=== PATIENT | female | born 1985 | race Caucasian/White ===

== ENCOUNTER 2024-06-28 17:34 | Emergency (ER) | payer OTHER, SELFPAY ==
[2024-06-28 17:48] VITALS: BP 118/68
[2024-06-28 18:33] LABS: COVID-19 Antigen Negative (Negative)
[2024-06-28 18:34] LABS: HCG, Serum Qualitative Screen Negative
[2024-06-28 18:37] LABS: ALT (SGPT) 33 U/L (0-35); AST (SGOT) 33 U/L (14-36); Alkaline Phosphatase 58 U/L (38-126); Blood Urea Nitrogen 14 mg/dl (7-17); Calcium 8.9 mg/dl (8.4-10.2); Carbon Dioxide 31 mmol/L (22-30); Chloride 99 mmol/L (98-107); Glucose 107 mg/dl (70-99); Sodium 138 mmol/L (135-145); Total Bilirubin 0.2 mg/dl (0.2-1.3); Total Protein 6.5 g/dl (6.3-8.2); eGFR > 60.00
[2024-06-28 18:41] LABS: % Basophils 0.5 % (0-2); % Eosinophils 1.3 % (0-6); % Immature Granulocytes 0.3 % (0-0.5); % Lymphocytes 52.4 % (20.5-51.1); % Monocytes 12.6 % (1.7-9.3); % Neutrophils 32.9 % (42.2-75.2); Absolute Eosinophils 0.1 10^3/uL (0-0.7); Absolute Monocytes 0.5 10^3/uL (0.1-0.6); Absolute Neutrophils 1.3 10^3/uL (1.4-6.5); Hematocrit 41.6 % (37.0-47.0); Hemoglobin 13.9 g/dL (12.0-16.0); Mean Corp Hgb Conc. 33.4 g/dL (33.0-37.0); Mean Corpuscular Hgb 30.3 pg (27.0-31.0); Mean Corpuscular Volume 90.6 fL (81.0-99.0); Mean Platelet Volume 10.1 fL (7.4-10.4); Nucleated Red Blood Cells % 0 %; Platelet Count 239 10^3/uL (130-400); Red Blood Cell Count 4.59 10^6/uL (4.20-5.40); Red Cell Dist. Width 12.4 % (11.5-14.5); White Blood Cell Count 3.8 10^3/uL (4.8-10.8)
[2024-06-28 18:42] LABS: Troponin I < 0.012 ng/ml
--- NOTE | 2024-06-28 20:12 | ED.GENMED ---
History of Present Illness
General
Chief Complaint: Cold/Flu/URI Symptoms
Time Seen by Provider: 06/28/24 20:12
History of Present Illness
History of Present Illness:
TIME OF INITIAL ENCOUNTER: 8:15 PM
HPI: Patient presents with URI symptoms over the last several days associated with shortness of breath.
EXAM:
NUMBER AND COMPLEXITY OF PROBLEMS ADDRESSED AT THE ENCOUNTER
� Chronic conditions affecting care: Bladder prolapse but otherwise no significant past medical history
� Acute Exacerbation and/or Progression of Chronic Illness:
� Differential Diagnosis includes:
AMOUNT AND/OR COMPLEXITY OF DATA TO BE REVIEWED AND ANALYZED
� I performed an independent evaluation of and my interpretation is:
EKG: Sinus 55, no acute ST abnormality, no old to compare
CT:
X-rays:
Laboratory Studies: White count 3.8, hemoglobin normal, troponin less than 0.012, hCG negative, COVID-negative, flu positive
Other:
� Review of other/old records:
� Clinical information was obtained by an independent historian:
� Prescriptions/Medications Considered but not given:
� Further testing considered but not performed:
RISK OF COMPLICATIONS AND/OR MORBIDITY OR MORTALITY OF PATIENT MANAGEMENT
� Social determinants of health affecting care:
� Discussion with other providers:
� Escalation of care including admission/observation vs risk of discharge considered:
ANY OTHER UPDATES:
Course
Orders/Labs/Results
Orders:
Orders
06/28/24 17:37
Electrocardiogram (*1) Urgent
Reason for Study: Vertigo / Dizzy
EKG- Treatment ONCE
06/28/24 17:51
Test Result ONCE
06/28/24 17:58
COVID-19 Antigen Urgent
Source: Nasal Swab
Complete Blood Count/With Diff Urgent
Comprehensive Metabolic Panel Urgent
HCG, Serum Qualitative Screen Urgent
Troponin I Urgent
Influenza A+B Rapid Molecular Urgent
LOGAN Source: Nasal Swab
Specimen Description:
06/28/24 17:59
CR Chest - 2 Views Urgent
Comment:
Reason For Exam: SOB
06/28/24 19:[address] [CT Head W/o Iv Contrast] Urgent
Comment:
Reason For Exam: head injury
Abnormal Lab Results
06/28/24
17:58
WBC 3.8 L 10^3/uL
(4.8-10.8)
Absolute Neuts (auto) 1.3 L 10^3/uL
(1.4-6.5)
Neutrophils % 32.9 L %
(42.2-75.2)
Lymphocytes % 52.4 H %
(20.5-51.1)
Monocytes % 12.6 H %
(1.7-9.3)
Carbon Dioxide 31 H mmol/L
(22-30)
Glucose 107 H mg/dl
(70-99)
06/28/24 17:58
06/28/24 17:58
Vital Signs
Initial and Last Documented VS:
Initial Vital Signs
Temp Pulse Resp BP Pulse Ox
36.7 C 65 18 118/68 99
06/28/24 17:48 06/28/24 17:48 06/28/24 17:48 06/28/24 17:48 06/28/24 17:48
Last Documented Vital Signs
Temp Pulse Resp BP Pulse Ox
36.7 C 65 18 118/68 99
06/28/24 17:48 06/28/24 17:48 06/28/24 17:48 06/28/24 17:48 06/28/24 17:48
ED Attending Note
-
Portions of this chart may have been created with voice recognition software.� Occasional wrong word or��sound alike� substitutions may have occurred due to the inherent limitations of voice recognition software.
Discharge Plan
Interventions
Interventions:
*Risk Screen - Suicide Last Done: 06/28/24 17:49
*General Assessment Last Done: 06/28/24 17:49
*Neglect/Abuse Screening Last Done: 06/28/24 17:49
*ED COVID-19 Vaccine History Last Done: 06/28/24 17:49
Discharge Date and Time
Print Language: KOREAN
--- NOTE | 2024-06-28 20:36 | ED.GENMED ---
History of Present Illness
General
Chief Complaint: Cold/Flu/URI Symptoms
Time Seen by Provider: 06/28/24 20:12
History of Present Illness
History of Present Illness:
TIME OF INITIAL ENCOUNTER: 8:40 PM
HPI: The patient has been having intermittent episodes of dizziness and vertigo to the point that she has been nearly passing out over the last several days. She also has associated URI type of symptoms. She states that she had 'full-blown flu
symptoms' approximately 10 days ago. She has no shortness of breath. Today, she has had poor oral intake and has ongoing nausea. She has no significant abdominal pain.
EXAM:
GENERAL: Well appearing in no distress, occasional wet sounding cough
HEENT: Moist oral mucosa
CARDIOVASCULAR: No murmurs, normal heart rate, regular rhythm, No chest wall tenderness
PULMONARY: No respiratory distress, breath sounds are clear and equal but some wheeze noted with coughing
ABDOMEN: Soft with no peritoneal signs, no tenderness
NEUROLOGIC: Excellent strength all extremities, no coordination deficits
PSYCHIATRIC: Appropriate mental status, normal insight and judgement
EXTREMITIES: Nontender, no edema, moves all extremities equally
SKIN: No rash, no lesions
NUMBER AND COMPLEXITY OF PROBLEMS ADDRESSED AT THE ENCOUNTER
� Chronic conditions affecting care: No significant past medical history
� Acute Exacerbation and/or Progression of Chronic Illness: This is an acute problem
� Differential Diagnosis includes: Viral syndrome, dehydration, electrolyte normality, intracranial mass/bleed
AMOUNT AND/OR COMPLEXITY OF DATA TO BE REVIEWED AND ANALYZED
� I performed an independent evaluation of and my interpretation is:
EKG: Sinus 55, normal axis, nonspecific ST abnormality
CT: CT head negative
X-rays: Chest x-ray unremarkable
Laboratory Studies: White count 3.8, bicarb 31, chemistries otherwise unremarkable, troponin less than 0.012, COVID-negative, flu B+
Other:
� Review of other/old records: No old records available for review in [facility]
� Clinical information was obtained by an independent historian: I spoke to at bedside
� Prescriptions/Medications Considered but not given: Considered Tamiflu however she had more significant flulike illness over a week ago
� Further testing considered but not performed:
RISK OF COMPLICATIONS AND/OR MORBIDITY OR MORTALITY OF PATIENT MANAGEMENT
� Social determinants of health affecting care: Lives at home with family
� Discussion with other providers:
� Escalation of care including admission/observation vs risk of discharge considered: The patient has a relatively unremarkable workup in the ED however the patient is flu B+. Of note, the patient's flu type symptoms were more
prominent about a week ago. She was mostly concerned about recurrent sensations of nearly passing out/dizziness/vertigo. We talked about the possibility of benign paroxysmal positional vertigo however she does not feel that this is the etiology of
her symptoms. She states that this feels very similar to the time that she had Lyme disease when she was in [place] one summer. She still has poor p.o. intake/desire to eat/drink�will give IV fluids and Zofran.
ANY OTHER UPDATES:
10:20 PM: The patient still has dizzy lightheaded feeling. Blood pressure is currently 108 systolic. She did have a couple readings that were a little lower here. Blood pressure is improving with IV fluids. She is eager to go home after IV
fluids. Nausea persist�will give another round of the nausea medicine.
Phy Exam
Physical Exam
Physical Exam:
See HPI
Course
Orders/Labs/Results
Orders:
Orders
06/28/24 17:37
Electrocardiogram (*1) Urgent
Reason for Study: Vertigo / Dizzy
EKG- Treatment ONCE
06/28/24 17:51
Test Result ONCE
06/28/24 17:58
COVID-19 Antigen Urgent
Source: Nasal Swab
Complete Blood Count/With Diff Urgent
Comprehensive Metabolic Panel Urgent
HCG, Serum Qualitative Screen Urgent
Troponin I Urgent
Influenza A+B Rapid Molecular Urgent
LOGAN Source: Nasal Swab
Specimen Description:
06/28/24 17:59
CR Chest - 2 Views Urgent
Comment:
Reason For Exam: SOB
06/28/24 19:[address] [CT Head W/o Iv Contrast] Urgent
Comment:
Reason For Exam: head injury
06/28/24 21:07
0.9% Sodium Chloride 1000 ml [Nss] 1,000 ml IV BOLUS
Ondansetron Injectable [Zofran] 4 mg IV NOW STA
06/28/24 22:21
Ondansetron Injectable [Zofran] 4 mg IV NOW STA
Abnormal Lab Results
06/28/24
17:58
WBC 3.8 L 10^3/uL
(4.8-10.8)
Absolute Neuts (auto) 1.3 L 10^3/uL
(1.4-6.5)
Neutrophils % 32.9 L %
(42.2-75.2)
Lymphocytes % 52.4 H %
(20.5-51.1)
Monocytes % 12.6 H %
(1.7-9.3)
Carbon Dioxide 31 H mmol/L
(22-30)
Glucose 107 H mg/dl
(70-99)
06/28/24 17:58
06/28/24 17:58
Vital Signs
Initial and Last Documented VS:
Initial Vital Signs
Temp Pulse Resp BP Pulse Ox
36.7 C 65 18 118/68 99
06/28/24 17:48 06/28/24 17:48 06/28/24 17:48 06/28/24 17:48 06/28/24 17:48
Last Documented Vital Signs
Temp Pulse Resp BP Pulse Ox
36.7 C 65 18 118/68 99
06/28/24 17:48 06/28/24 17:48 06/28/24 17:48 06/28/24 17:48 06/28/24 21:42
*Critical Care Note
Total Time (30-74mins, 75-104mins- exclusive of procedures): Not Applicable
ED Attending Note
-
Portions of this chart may have been created with voice recognition software.� Occasional wrong word or��sound alike� substitutions may have occurred due to the inherent limitations of voice recognition software.
Discharge Plan
Departure
Patient Disposition: Home (Routine Discharge)
Date of Disposition: 06/28/24
Time of Disposition: 22:23
Patient with high blood pressure during this ER visit?: Yes
Discharge Problem:
Episodic lightheadedness
Instructions: Flu, Dizziness
Referrals:
NONE,* [Family Provider] -
Activity Restrictions/Additional Instructions:
Flu test is positive. Blood tests are unremarkable. COVID test is negative, chest x-ray is clear and the CAT scan of the brain is unremarkable. We gave you a liter of IV fluids and 2 rounds of Zofran tonight.
Interventions
Interventions:
*Risk Screen - Suicide Last Done: 06/28/24 17:49
*General Assessment Last Done: 06/28/24 17:49
*Neglect/Abuse Screening Last Done: 06/28/24 17:49
ED- Fall Risk Assessment Last Done: 06/28/24 21:42
*ED COVID-19 Vaccine History Last Done: 06/28/24 17:49
*Nursing Disposition Last Done: 06/28/24 23:43
ED- Pulmonary Assessment Last Done: 06/28/24 21:42
Discharge Date and Time
Discharge Date/Time: 06/28/24 23:45
Print Language: EQUATORIAL GUINEAN
[2024-06-28] MEDS: ZOFRAN 4 MG IV ×2 (21:37→23:35)
[2024-06-28] MEDS: NSS 1000 IV (21:37)
[2024-06-28 21:41] VITALS: BMI 31.1
== END 2024-06-28 23:45 | disposition home or self-care (01) ==
LOC: EMR 17:34
PROVIDERS: Emergency Medicine; EMERGENCY PHYSICIAN Emergency Medicine
DX: R42 Dizziness and giddiness (principal); R11.0 Nausea
CPT/HCPCS: 99285; 96374; 96376; 96361; 70450; 71046; 80053; 84484; 84703; 85025; 87502; 87811; 93005

== ENCOUNTER → 2024-07-04 16:12 | Outpatient (REF) | payer OTHER, SELFPAY ==
[2024-07-04 17:23] LABS: % Basophils 0.2 % (0-2); % Eosinophils 3.4 % (0-6); % Immature Granulocytes 0.4 % (0-0.5); % Lymphocytes 31.5 % (20.5-51.1); % Monocytes 6.6 % (1.7-9.3); % Neutrophils 57.9 % (42.2-75.2); Absolute Eosinophils 0.3 10^3/uL (0-0.7); Absolute Lymphocytes 2.6 10^3/uL (1.2-3.4); Absolute Monocytes 0.5 10^3/uL (0.1-0.6); Absolute Neutrophils 4.8 10^3/uL (1.4-6.5); Hematocrit 44.1 % (37.0-47.0); Hemoglobin 14.9 g/dL (12.0-16.0); Mean Corp Hgb Conc. 33.8 g/dL (33.0-37.0); Mean Corpuscular Hgb 30.6 pg (27.0-31.0); Mean Corpuscular Volume 90.6 fL (81.0-99.0); Mean Platelet Volume 10.1 fL (7.4-10.4); Nucleated Red Blood Cells % 0 %; Platelet Count 362 10^3/uL (130-400); Red Blood Cell Count 4.87 10^6/uL (4.20-5.40); White Blood Cell Count 8.2 10^3/uL (4.8-10.8)
[2024-07-04 18:02] LABS: TSH Reflex To Free T4 1.32 uIU/ml (0.47-4.68)
[2024-07-07 04:27] LABS: EBV-EA (D) Ab IgG <5.0 U/mL (0.0-10.9); EBV-VCA IgM Antibodies 10.4 U/mL (0.0-43.9)
== END ==
LOC: REG 16:12
DX: R42 Dizziness and giddiness (principal)
CPT/HCPCS: 36415; 84443; 85025; 86663; 86664; 86665

== ENCOUNTER → 2024-07-15 16:20 | Outpatient (REF) | payer OTHER, SELFPAY ==
[2024-07-15 18:53] LABS: Vitamin B12 669 pg/ml (239-931)
== END ==
LOC: REG 16:20
PROVIDERS: ATTENDING PHYSICIAN Student in an Organized Health Care Education/Training Program
DX: R20.2 Paresthesia of skin (principal)
CPT/HCPCS: 36415; 82607; 82746

== ENCOUNTER → 2024-12-26 10:57 | Outpatient (REF) | payer OTHER, SELFPAY | LOC: RAD 10:57 | PROVIDERS: ATTENDING PHYSICIAN Physician Assistant Medical | DX: M81.0 Age-related osteoporosis without current pathological fracture (principal) | CPT/HCPCS: 77080 ==

== ENCOUNTER 2025-03-12 19:14 | Emergency (ER) | payer OTHER, SELFPAY ==
[2025-03-12 19:18] VITALS: BP 143/80
[2025-03-12 20:20] VITALS: BP 116/65
[2025-03-12 20:23] VITALS: BMI 30.2
[2025-03-12 21:00] VITALS: BP 111/52
--- NOTE | 2025-03-12 21:19 | ED.GENMED ---
History of Present Illness
General
Chief Complaint: Throat Problem
Source: patient
Time Seen by Provider: 03/12/25 21:10
History of Present Illness
History of Present Illness:
39-year-old female with no significant past medical history presents to the emergency department for evaluation after she accidentally swallowed a bee while drinking a glass of sangria around 530 this evening. Patient notes pain and some discomfort
to the right side of her throat especially when swallowing. She notes no difficulty breathing, did not take any medications prior to arrival. No history of anaphylactic reaction to bee stings.
Past History
Past History
ED Past Medical History: None
ED Past Surgical History: Urological
Social History
Tobacco: Non-smoker
Alcohol: Occasional
Drug: None
Personal:
Living: with family
Review of Systems
Review of Systems
All Other Systems: ROS reviewed and negative except as documented in HPI and ROS
Phy Exam
Physical Exam
Physical Exam:
GENERAL: Alert , in no apparent distress
HEAD: Normocephalic atraumatic
EYE: conjunctiva clear
NECK: Supple
ENT: o/p clr, mmm. no tonsillar edema/exudates, uvula midline, airway patent, no stridor or trismus
CARDIAC: Regular rate and rhythm
LUNGS: Clear breath sounds bilaterally, no acute respiratory distress, no wheezes/rales/rhonchi
NEUROLOGICAL: Alert and oriented
SKIN: Warm and dry, skin intact.
MUSCULOSKELETAL: well perfused.
PSYCH: Normal and appropriate interaction.
Scores
Heart Failure Risk
Heart Failure Risk Score: Not Applicable
Heart Score for Chest Pain Patients
STEMI patient?: Not applicable
Withdrawal Assessment of Alcohol
Withdrawal Assessment Completed?: Not applicable
Course
Orders/Labs/Results
Orders:
Orders
03/12/25 21:17
Famotidine [Pepcid] 20 mg PO NOW STA
Ibuprofen [Motrin] 600 mg PO NOW STA
Prednisone [Deltasone] 50 mg PO NOW STA
Viscous Lidocaine 2% [Xylocaine Viscous Cup] 15 ml PO NOW STA
03/12/25 22:03
Diphenhydramine [Benadryl] 50 mg PO NOW STA
Vital Signs
Initial and Last Documented VS:
Initial Vital Signs
Temp Pulse Resp BP Pulse Ox
98.5 F 77 16 143/80 99
03/12/25 19:18 03/12/25 19:18 03/12/25 19:18 03/12/25 19:18 03/12/25 19:18
Last Documented Vital Signs
Temp Pulse Resp BP Pulse Ox
98.5 F 77 16 111/52 100
03/12/25 19:18 03/12/25 19:18 03/12/25 19:18 03/12/25 21:00 03/12/25 22:00
MDM/Problems Addressed
Differential Diagnosis Includes:
Bee sting
No signs of anaphylactic reaction
I do not have concern for infectious etiology
MDM/Problems Addressed:
39-year-old female in the ER for evaluation after having she accidentally swallowed a bee and since that time has had pain to the right side of her throat. Exam reassuring, no airway compromise. Patient declining benadryl stating she needs to drive
home but will treat now with motrin, viscous lidocaine, Pepcid and prednisone. Reassessment following with anticipation of discharge home. Considered EpiPen however patient is not displaying any signs of anaphylaxis
*Pulse Oximetry
SaO2: 98
Oxygen Mode of Delivery: Room air
Patient hypoxic: no
*Critical Care Note
Total Time (30-74mins, 75-104mins- exclusive of procedures): Not Applicable
Patient Management
Escalation/DeEscalation of care consider admission/obs:
Patient notes improvement of symptoms, continues to be able to tolerate secretions without difficulty. No evidence for anaphylaxis. At this time patient is stable for discharge home. Aware of return precautions to the ER.
ED Attending Note
-
Portions of this chart may have been created with voice recognition software.� Occasional wrong word or��sound alike� substitutions may have occurred due to the inherent limitations of voice recognition software.
Discharge Plan
Departure
Patient Disposition: Home (Routine Discharge)
Date of Disposition: 03/12/25
Time of Disposition: 22:04
Patient with high blood pressure during this ER visit?: No
Discharge Problem:
Bee sting
Instructions: Insect bites and stings - ED (DC)
Prescriptions:
New
prednisone 20 mg tablet
40 mg PO DAILY 5 Days Qty: 10 0RF
lidocaine HCl 2 % solution
1 applic mucous membrane QID PRN (Reason: Pain) Qty: 100 0RF
Referrals:
Ketan Degroot PA-C [Family Provider, Family Practice]
Interventions
Interventions:
*Risk Screen - Suicide Last Done: 03/12/25 19:18
*General Assessment Last Done: 03/12/25 20:23
*Neglect/Abuse Screening Last Done: 03/12/25 19:18
*ED- Fall Risk Assessment Last Done: 03/12/25 20:23
*ED COVID-19 Vaccine History Last Done: 03/12/25 20:23
*Nursing Disposition Last Done: 03/12/25 22:11
ED-EENT Assessment Last Done: 03/12/25 20:24
ED- Pulmonary Assessment Last Done: 03/12/25 20:24
Discharge Date and Time
Discharge Date/Time: 03/12/25 22:11
Print Language: YI
[2025-03-12] MEDS: MOTRIN 600 MG PO (21:26)
[2025-03-12] MEDS: DELTASONE 50 MG PO (21:26)
[2025-03-12] MEDS: PEPCID 20 MG PO (21:26)
[2025-03-12] MEDS: XYLOCAINE VISCOUS CUP 15 ML PO (21:26)
[2025-03-12] MEDS: BENADRYL 50 MG PO (22:08)
== END 2025-03-12 22:11 | disposition home or self-care (01) ==
LOC: EMR 19:14
PROVIDERS: EMERGENCY PHYSICIAN Emergency Medicine; FAMILY PHYSICIAN Physician Assistant Medical
DX: T63.441A Toxic effect of venom of bees, accidental (unintentional), initial encounter (principal)
CPT/HCPCS: 99283